=== PATIENT | female | born 1985 | race Two or more races ===

== ENCOUNTER 2025-05-02 12:39 | Inpatient (IN) | payer OTHER ==
[2025-05-01 16:25] LABS: BASO % 0.3 % (0.1-1.2); EOS # 0.12 (0.04-0.54); EOS % 1.2 % (0.7-7.0); LYMPH # 1.35 (1.18-3.74); LYMPH % 13.3 % (19.3-53.1); MEAN PLATELET VOLUME 9.70 fl (9.4-12.4); MONO # 0.65 (0.24-0.82); MONO % 6.4 % (4.7-12.5); NEUT # 7.86 (1.56-6.13); NEUT % 77.3 % (34.0-71.1); RED CELL DISTRIBUTION WIDTH 15.9 % (11.6-14.4)
[2025-05-01 17:02] LABS: INR 1.0
[2025-05-01 17:21] LABS: ALT/SGPT 12.0 U/L (12-78); AST/SGOT 15.0 U/L (15-37); BILIRUBIN TOTAL 0.45 mg/dL (0.3-1.2); BUN CREA RATIO 11.0 (7.0-25.0); CREATININE SERUM 0.38 mg/dL (0.55-1.02); GFR 188.53; GLOBULINA 3.5 G/DL (2.4-3.5); GLUCOSE FASTING 72.0 mg/dL (65-100); OSMOLALITY SERUM 277.0 MOSM/KG (275-295)
[~2025-05-02] VITALS: Ht 165.1 cm; Wt 85.7 kg
[2025-05-02] MEDS ORDERED: ERYTHROMYCIN BASE OPHT 1GM EACH TUBE OP ONE (12:45)
[2025-05-02] MEDS ORDERED: OXYTOCIN 10 UNITS/ML VIAL ONE ×2 (12:45→17:18)
[2025-05-02] MEDS ORDERED: RINGERS SOLUTION,LACTATED 1,000 ML IV SCH (13:00)
[2025-05-02 13:33] VITALS: BP 117/66
[2025-05-02] MEDS ORDERED: MORPHINE SULFATE 4 MG/ML CARTRIDGE IV SCH (13:40)
[2025-05-02] MEDS ORDERED: KETOROLAC TROMETHAMINE 30 MG VIAL IV SCH (13:41)
[2025-05-02 13:44] LABS: BASO % 0.1 % (0.1-1.2); EOS # 0.10 (0.04-0.54); EOS % 1.1 % (0.7-7.0); LYMPH # 1.17 (1.18-3.74); LYMPH % 13.2 % (19.3-53.1); MEAN PLATELET VOLUME 10.20 fl (9.4-12.4); MONO # 0.55 (0.24-0.82); MONO % 6.2 % (4.7-12.5); NEUT # 6.91 (1.56-6.13); NEUT % 77.8 % (34.0-71.1); RED CELL DISTRIBUTION WIDTH 16.0 % (11.6-14.4)
[2025-05-02 13:45] LABS: URINE APPEARANCE Clear; URINE BILIRRUBIN Negative (NEGATIVE); URINE BLOOD Moderate; URINE COLOR Yellow; URINE GLUCOSE Negative (NEGATIVE); URINE KETONE 15 (NEGATIVE); URINE LEUKOCYTE Negative; URINE NITRATE Negative; URINE PROTEIN Negative (NEGATIVE); URINE UROBILINOGEN 0.2 E.U./dl
[2025-05-02] MEDS ORDERED: OXYTOCIN 1,000 ML IV ONE (13:45)
[2025-05-02] MEDS ORDERED: CEFAZOLIN SODIUM 1,000 MG VIAL IV NR (13:47)
[2025-05-02 13:49] LABS: URINE BACTERIA 407.8 uL (0.0-1933); URINE EPITHELIAL CELLS 39.0 uL (0.0-38.8); URINE RBC 10.8 uL (0.0-20.8); URINE WBC 6.6 uL (0.0-23.2)
[2025-05-02] MEDS ORDERED: CEFAZOLIN SODIUM 1,000 MG VIAL ONE (13:59)
[2025-05-02 14:13] LABS: URINE CAST 0.00 uL (0.0-1.40)
[2025-05-02 14:15] LABS: INR 1.0
[2025-05-02 14:18] LABS: ALT/SGPT 13.0 U/L (12-78); AST/SGOT 12.0 U/L (15-37); BILIRUBIN TOTAL 0.43 mg/dL (0.3-1.2); BUN CREA RATIO 14.0 (7.0-25.0); CREATININE SERUM 0.36 mg/dL (0.55-1.02); GFR 200.67; GLOBULINA 3.3 G/DL (2.4-3.5); GLUCOSE FASTING 73.0 mg/dL (65-100); OSMOLALITY SERUM 277.0 MOSM/KG (275-295)
[2025-05-02] MEDS ORDERED: MORPHINE SULFATE 4 MG/ML VIAL IV ONE ×2 (15:55→16:55)
[2025-05-02] MEDS ORDERED: KETOROLAC TROMETHAMINE 30 MG VIAL ONE (16:04)
[2025-05-02 17:45] VITALS: BP 110/67; O2SAT 98
[2025-05-03] VITALS: BP 107/67
[2025-05-03] MEDS ORDERED: ACETAMINOPHEN 500 MG GEL..CAP PO SCH (06:00)
[2025-05-03 07:17] LABS: BASO % 0.2 % (0.1-1.2); EOS # 0.04 (0.04-0.54); EOS % 0.3 % (0.7-7.0); LYMPH # 0.90 (1.18-3.74); LYMPH % 7.8 % (19.3-53.1); MEAN PLATELET VOLUME 10.80 fl (9.4-12.4); MONO # 0.89 (0.24-0.82); MONO % 7.8 % (4.7-12.5); NEUT # 9.53 (1.56-6.13); NEUT % 83.0 % (34.0-71.1); RED CELL DISTRIBUTION WIDTH 16.0 % (11.6-14.4)
[2025-05-03 08:55] VITALS: BP 104/66
[2025-05-03] MEDS ORDERED: PNV,CALCIUM 72/IRON/FOLIC ACID 1 TAB TABLET PO SCH (09:00)
[2025-05-03] MEDS ORDERED: DOCUSATE SODIUM 100MG CAP PO SCH (09:00)
[2025-05-03] MEDS ORDERED: SIMETHICONE 125 MG CAPSULE PO SCH (09:00)
[2025-05-03] MEDS ORDERED: GABAPENTIN 300 MG CAPSULE PO SCH (09:00)
[2025-05-03 16:43] VITALS: BP 114/74
[2025-05-04] VITALS: BP 105/70; O2SAT 97
[2025-05-04 09:22] VITALS: BP 121/78
== END 2025-05-04 13:36 | disposition home or self-care (01) | DRG 785 ==
LOC: LDR 12:39 → OB/GYN 12:39
PROVIDERS: Obstetrics & Gynecology Gynecology; ADMIT Obstetrics & Gynecology; ATTEND Obstetrics & Gynecology
PROC: 0UB70ZZ Excision of Bilateral Fallopian Tubes, Open Approach (ICD-10-PCS; 2025-05-02)
PROC: 0UB90ZZ Excision of Uterus, Open Approach (ICD-10-PCS; 2025-05-02)
PROC: 0DNN0ZZ Release Sigmoid Colon, Open Approach (ICD-10-PCS; 2025-05-02)
PROC: 4A1HXCZ Monitoring of Products of Conception, Cardiac Rate, External Approach (ICD-10-PCS; 2025-05-02)
PROC: 10D00Z1 Extraction of Products of Conception, Low, Open Approach (ICD-10-PCS; principal; 2025-05-02 12:30)
DX: O34.211 Maternal care for low transverse scar from previous cesarean delivery (principal); D25.9 Leiomyoma of uterus, unspecified; O34.13 Maternal care for benign tumor of corpus uteri, third trimester; Z3A.37 37 weeks gestation of pregnancy; Z37.0 Single live birth; Z30.2 Encounter for sterilization; K66.0 Peritoneal adhesions (postprocedural) (postinfection); O99.62 Diseases of the digestive system complicating childbirth